=== PATIENT | female | born 1975 | race African-American/Black ===

== ENCOUNTER 2020-11-11 14:30 | Outpatient (CLI) | payer OTHER | END 2020-11-11 23:59 | disposition home or self-care (01) | LOC: D.MAMMO 14:30 | PROVIDERS: ATTEND Nurse Practitioner | DX: Z12.31 Encounter for screening mammogram for malignant neoplasm of breast (principal) ==

== ENCOUNTER 2020-12-09 20:00 | Outpatient (CLI) | payer OTHER | END 2020-12-09 23:59 | disposition home or self-care (01) | LOC: D.MAMMO 20:00 | PROVIDERS: ATTEND Nurse Practitioner | DX: R92.2 Inconclusive mammogram (principal) ==

== ENCOUNTER → 2021-01-27 10:28 | Outpatient (CLI) | payer OTHER | END | disposition home or self-care (01) | LOC: D.RAD 10:28 | PROVIDERS: ATTEND Nurse Practitioner | DX: Z11.1 Encounter for screening for respiratory tuberculosis (principal) ==